=== PATIENT | female | born 1985 | race African-American/Black ===

== ENCOUNTER 2022-04-04 19:59 | Observation (INO) | payer SELFPAY ==
[~2022-04-04] VITALS: Ht 170.2 cm; Wt 84.4 kg
[2022-04-04] MEDS ORDERED: FERROUS SULFATE (22:10)
[2022-04-04] MEDS ORDERED: PRENATAL VITAMINS (22:10)
== END 2022-04-04 23:39 | disposition home or self-care (01) ==
LOC: 8 EST LDRP 19:59
PROVIDERS: ADMIT Obstetrics & Gynecology; ATTEND Obstetrics & Gynecology
DX: O62.9 Abnormality of forces of labor, unspecified (principal); Z3A.38 38 weeks gestation of pregnancy
CPT/HCPCS: 59025; 76805; 76818; G0378; 99281

== ENCOUNTER 2022-04-05 12:24 | Inpatient (IN) | payer SELFPAY ==
[~2022-04-05] VITALS: Ht 170.2 cm; Wt 83.9 kg
[~2022-04-05 12:24] MED LIST: FERROUS SULFATE; PRENATAL VITAMINS
[2022-04-05] MEDS ORDERED: LACTATED RINGERS 1,000 ML IV SCH ×2 (13:15→19:15)
[2022-04-05] MEDS ORDERED: CARBOPROST TROMETHAMINE 250 MCG/ML AMPUL IM PRN (13:15)
[2022-04-05] MEDS ORDERED: LIDOCAINE HCL 1% 20ML VIAL (Pyxis) INJ INFIL PRN (13:15)
[2022-04-05] MEDS ORDERED: MISOPROSTOL 100MCG TABLET VG PRN (13:15)
[2022-04-05] MEDS ORDERED: BUTORPHANOL TARTRATE 2 MG/ML VIAL IV PRN ×2 (13:15→19:15)
[2022-04-05] MEDS ORDERED: METHYLERGONOVINE MALEATE 0.2 MG/ML IM PRN (13:15)
[2022-04-05] MEDS ORDERED: ROPIVACAINE HCL/PF EPIDURAL 200 ML EPI SCH (14:00)
[2022-04-05] MEDS ORDERED: OXYTOCIN 30 UNITS/500ML NS PMX 500 ML IV SCH ×2 (14:45→19:15)
[2022-04-05 14:46] LABS: BASOPHILS % 0.1 % (0.0-2.0); EOSINOPHILS % 0.7 % (0.0-5.0); MEAN CORPUSCULAR HEMOGLOBIN 27.4 pg (28.0-32.0); MEAN CORPUSCULAR VOLUME 82.1 fL (81.0-99.0); MEAN PLATELET VOLUME 10.7 fl (7.4-10.4); MONOCYTES % 9.1 % (2.0-8.0); NEUTROPHILS % 77.1 % (40.0-76.0); PLATELET 135 x1000/uL (130-400); RED BLOOD CELL COUNT 4.02 mill/uL (4.2-5.4); RED CELL DISTRIBUTION WIDTH 14.8 % (11.6-14.6)
[2022-04-05 14:54] LABS: PARTIAL THROMBOPLASTIN TIME 28.8 sec (23.4-31.0)
[2022-04-05 14:58] LABS: CLARITY URINE CLOUDY (CLEAR); COLOR URINE YELLOW (YELLOW); KETONES URINE NEGATIVE (NEGATIVE); LEUKOCYTE ESTERASE URINE TRACE (NEGATIVE); NITRITE URINE NEGATIVE (NEGATIVE); OCCULT BLOOD URINE 2+ (NEGATIVE); PH URINE 6.5 (4.5-8.0); PROTEIN URINE NEGATIVE (NEGATIVE); UROBILINOGEN URINE 0.2 E.U./dL (0.2-1.0)
[2022-04-05 16:57] LABS: HEPATITIS B SURFACE ANTIGEN NEGATIVE
[2022-04-05 17:00] LABS: *AMPHETAMINES SCREEN URINE NEGATIVE (NEGATIVE); *BARBITURATES SCREEN URINE NEGATIVE (NEGATIVE); *BENZODIAZEPINES SCREEN URINE NEGATIVE (NEGATIVE); *COCAINE SCREEN URINE NEGATIVE (NEGATIVE); METHADONE URINE SCREEN NEGATIVE (NEGATIVE); OPIATES URINE SCREEN NEGATIVE (NEGATIVE)
[2022-04-05 17:09] LABS: CANNABINOID URINE SCREEN NEGATIVE (NEGATIVE); PHENCYCLIDINE URINE SCREEN NEGATIVE (NEGATIVE)
[2022-04-05] MEDS ORDERED: RHO(D) IMMUNE GLOBULIN 300 MCG/SYR IM PRN (19:15)
[2022-04-05] MEDS ORDERED: DEXT 5%/LACTATED RINGERS 1,000 ML IV SCH (19:15)
[2022-04-05] MEDS ORDERED: LIDOCAINE HCL 1% 20ML VIAL (Pyxis) INJ INFIL SCH (19:15)
[2022-04-05] MEDS ORDERED: ROPIVACAINE HCL/PF EPIDURAL 200 ML EPI ONE (19:41)
[2022-04-06 01:00] VITALS: BP 106/56
[2022-04-06] MEDS ORDERED: RHO(D) IMMUNE GLOBULIN 300 MCG/SYR IM PRN (01:00)
[2022-04-06] MEDS ORDERED: OXYTOCIN 30 UNITS/500ML NS PMX 500 ML IV SCH (01:00)
[2022-04-06] MEDS ORDERED: IBUPROFEN 400MG TABLET PO PRN (01:00)
[2022-04-06] MEDS ORDERED: BENZOCAINE/LANOLIN/ALOE VERA SPRAY TOP PRN (01:00)
[2022-04-06] MEDS ORDERED: DIPHENHYDRAMINE 25MG CAPSULE PO PRN (01:00)
[2022-04-06] MEDS ORDERED: GLYCERIN/WITCH HAZEL LEAF MEDICATED PAD TOP PRN (01:00)
[2022-04-06] MEDS ORDERED: BISACODYL 10MG SUPP PR PRN (01:00)
[2022-04-06] MEDS ORDERED: OXYCODONE HCL/ACETAMINOPHEN 5/325MG TABLET PO PRN (01:00)
[2022-04-06] MEDS ORDERED: LANOLIN OINT 7GM TUBE TOP PRN (01:00)
[2022-04-06] MEDS ORDERED: HEMORRHOIDAL SUPP PR PRN (01:00)
[2022-04-06 02:46] LABS: HEMATOCRIT. 33.8 % (36.0-48.0); HEMOGLOBIN. 11.3 g/dL (12.0-16.0); MEAN CORPUSCULAR HEMOGLOBIN 27.3 pg (28.0-32.0); MEAN CORPUSCULAR VOLUME 82.1 fL (81.0-99.0); MEAN PLATELET VOLUME 10.5 fl (7.4-10.4); PLATELET 129 x1000/uL (130-400); RED BLOOD CELL COUNT 4.12 mill/uL (4.2-5.4); RED CELL DISTRIBUTION WIDTH 14.8 % (11.6-14.6)
[2022-04-06 03:43] LABS: PLATELET ESTIMATE DECREASED
[2022-04-06 04:32] VITALS: BP_SYST 107; BP_SYST 117; BP_DIAS 50
[2022-04-06] MEDS ORDERED: LIDOCAINE HCL 2%/EPINEPHRINE 1:100,000 20 ML VIAL INFIL ONE (07:30)
[2022-04-06] MEDS: MAGNESIUM/ALUMINUM HYDROXIDE/SIMETHICONE 30ML UDC PO SCH ×4 (07:30→21:47)
[2022-04-06] MEDS ORDERED: MIDAZOLAM HCL 2 MG/2 ML VIAL ONE ×2 (07:56→10:25)
[2022-04-06] MEDS ORDERED: PROPOFOL 200MG/20ML VIAL IV ONE ×2 (07:56→10:33)
[2022-04-06] MEDS ORDERED: FENTANYL CITRATE/PF 50MCG/ML 2ML VIAL ONE (07:56)
[2022-04-06 08:00] VITALS: BP 111/74
[2022-04-06] MEDS: SIMETHICONE 80MG TABLET CHEW PO SCH ×4 (08:00→21:47)
[2022-04-06] MEDS ORDERED: METHYLERGONOVINE MALEATE 0.2MG TABLET PO SCH (09:00)
[2022-04-06] MEDS ORDERED: PRENATAL VIT/FE FUMARATE/FA TABLET PO SCH (09:00)
[2022-04-06] MEDS ORDERED: KETOROLAC 60MG/2ML VIAL IM ONE (10:59)
[2022-04-06 12:27] VITALS: BP 98/68
[2022-04-06 16:00] VITALS: BP 105/67
[2022-04-06] MEDS: IBUPROFEN 800MG TABLET PO PRN ×2 (16:20→20:54)
[2022-04-06 20:00] VITALS: BP 110/64
[2022-04-06] MEDS ORDERED: DOCUSATE SODIUM 100MG CAPSULE PO SCH (21:00)
[2022-04-07] MEDS: IBUPROFEN 800MG TABLET PO PRN (03:29)
[2022-04-07 04:01] VITALS: BP 100/63
[2022-04-07 06:56] LABS: BASOPHILS % 0.3 % (0.0-2.0); EOSINOPHILS % 1.3 % (0.0-5.0); HEMATOCRIT. 30.9 % (36.0-48.0); HEMOGLOBIN. 10.2 g/dL (12.0-16.0); LYMPHOCYTES % 20.1 % (20.0-50.0); MEAN CORPUSCULAR HEMOGLOBIN 27.2 pg (28.0-32.0); MEAN CORPUSCULAR VOLUME 82.7 fL (81.0-99.0); MEAN PLATELET VOLUME 10.7 fl (7.4-10.4); MONOCYTES % 10.6 % (2.0-8.0); NEUTROPHILS % 67.7 % (40.0-76.0); PLATELET 126 x1000/uL (130-400); RED BLOOD CELL COUNT 3.74 mill/uL (4.2-5.4); RED CELL DISTRIBUTION WIDTH 14.9 % (11.6-14.6)
[2022-04-07] MEDS ORDERED: FERROUS SULFATE 325MG TABLET PO SCH (07:30)
[2022-04-07 08:00] VITALS: BP 103/64
[2022-04-07] MEDS ORDERED: IBUP-2030 MT (09:22)
== END 2022-04-07 12:20 | disposition home or self-care (01) | DRG 541 ==
LOC: 8 EST LDRP 12:24 → OBSVTOIN 12:24 → 8EST 04-06 01:48
PROVIDERS: ADMIT Obstetrics & Gynecology; ATTEND Obstetrics & Gynecology
PROC: 10D07Z6 Extraction of Products of Conception, Vacuum, Via Natural or Artificial Opening (ICD-10-PCS; principal; 2022-04-06)
PROC: 0UB70ZZ Excision of Bilateral Fallopian Tubes, Open Approach (ICD-10-PCS; 2022-04-06)
PROC: 3E0R3BZ Introduction of Anesthetic Agent into Spinal Canal, Percutaneous Approach (ICD-10-PCS; 2022-04-06)
PROC: 00HU33Z Insertion of Infusion Device into Spinal Canal, Percutaneous Approach (ICD-10-PCS; 2022-04-06)
DX: O69.81X0 Labor and delivery complicated by cord around neck, without compression, not applicable or unspecified (principal); Z37.0 Single live birth; D62 Acute posthemorrhagic anemia; O99.03 Anemia complicating the puerperium; Z3A.39 39 weeks gestation of pregnancy; Z30.2 Encounter for sterilization; Z20.822 Contact with and (suspected) exposure to COVID-19
CPT/HCPCS: 36415; 80305; 81003; 85025; 86592; 86703; 86762; 86850; 86900; 87340; 87426; 88302; 99281; G0378; J1885; J2250; J2704; J2795; J3010; J3490; J7120; A4315; J2590